=== PATIENT | female | born 1970 | race Caucasian/White ===

== ENCOUNTER → 2020-02-02 | Outpatient (CLI) | payer OTHER ==
[~2020-02-02] MED LIST: DARVOCET N 1001 TAB PO
== END | disposition home or self-care (01) ==
LOC: COVID19 16:16
PROVIDERS: ATTEND Internal Medicine
DX: Z20.828 Contact with and (suspected) exposure to other viral communicable diseases (principal)

== ENCOUNTER 2021-07-16 14:05 | Emergency (ER) | payer SELFPAY ==
[~2021-07-16] VITALS: Ht 162.5 cm; Wt 51.7 kg
[2021-07-16] MEDS ORDERED: DULOXETINE HCL60 MG PO (14:18)
[2021-07-16] MEDS ORDERED: IBU600 M1 PO (14:18)
[2021-07-16] MEDS ORDERED: OXYCODONE-ACET1 EACH PO (14:19)
[2021-07-16 15:06] LABS: BASO % 0.5 % (0.0-1.0); EOS # 0.1 10*3/uL (0.0-0.4); EOS % 0.6 % (1.0-4.0); HEMATOCRIT 37.5 % (37.0-47.0); LYMPH # 1.8 10*3/uL (1.3-4.4); LYMPH % 20.6 % (27.0-41.0); MEAN CELL VOLUME 91.7 fl (81.0-99.0); MEAN CORPUSCULAR HGB 30.8 pg (27.0-31.0); MEAN CORPUSCULAR HGB CONC 33.6 g/dl (33.0-37.0); MEAN PLATELET VOLUME 9.4 fl (9.6-12.3); MONO # 0.7 10*3/uL (0.1-1.0); MONO % 7.6 % (3.0-9.0); NEUT % 70.5 % (47.0-73.0); PLATELET COUNT AUTOMATED 329 10*3/uL (130-400); RED BLOOD COUNT 4.09 10*6/uL (4.10-5.10); RED CELL DISTRI WIDTH 14.9 % (0-14.5); WHITE BLOOD COUNT 8.5 10*3/uL (4.8-10.8)
[2021-07-16 15:21] LABS: ACT PARTIAL THROMBO TIME 28.3 SECONDS (20.0-32.1); ALKALINE PHOSPHATASE 65 U/L (45-117); BUN 16 mg/dl (7-24); CHLORIDE 111 mmol/L (98-107); CREATININE 0.58 mg/dL (0.55-1.02); SGOT/AST 17 IU/L (3-35); SGPT/ALT 14 U/L (12-78); SODIUM 143 mmol/L (136-145); TOTAL PROTEIN 6.8 gm/dL (6.4-8.2)
[2021-07-16] MEDS ORDERED: Ondansetron4 MG PO (15:33)
== END 2021-07-16 15:39 | disposition home or self-care (01) ==
LOC: ED 14:05
PROVIDERS: Internal Medicine
DX: K62.5 Hemorrhage of anus and rectum (principal); Z91.040 Latex allergy status; Z79.899 Other long term (current) drug therapy; Z90.89 Acquired absence of other organs